=== PATIENT | female | born 1995 | race African-American/Black ===

== ENCOUNTER 2018-03-30 01:53 | Emergency (ER) | payer OTHER ==
[~2018-03-30] VITALS: Ht 165.1 cm; Wt 65.9 kg
[2018-03-30 02:08] VITALS: BP 136/78
[2018-03-30 03:31] LABS: BASOPHILS % (AUTO) 0.9 % (0.0-2.0); EOSINOPHILS % (AUTO) 0.1 % (1.0-6.0); HEMATOCRIT 35.7 % (36-46); HEMOGLOBIN 11.4 g/dL (12.0-16.0); LYMPHOCYTES # (AUTO) 1.1 K/uL (1.0-4.8); LYMPHOCYTES % (AUTO) 13.9 % (22.0-44.0); MEAN CORPUSCULAR HEMOGLOBIN 24.4 pg (26.0-34.0); MEAN CORPUSCULAR HGB CONC 31.8 G/dL (31.0-37.0); MEAN CORPUSCULAR VOLUME 77 fL (80-100); MONOCYTES # (AUTO) 0.7 K/uL (0.1-1.0); MONOCYTES % (AUTO) 8.7 % (2.0-9.0); NEUTROPHILS # (AUTO) 6.2 K/uL (1.8-7.7); NEUTROPHILS % (AUTO) 76.4 % (40.0-70.0); PLATELET COUNT (AUTO) 272 K/uL (150-450); RED BLOOD CELL COUNT(AUTO) 4.66 MIL/uL (4.00-5.20); RED CELL DISTRIBUTION WIDTH 15.8 % (11.5-14.5)
[2018-03-30 03:45] LABS: PLATELET MORPHOLOGY COMMENT LARGE PLTS PRESENT
[2018-03-30 03:46] LABS: ALANINE AMINOTRANSFERASE 70 U/L (12-78); ALKALINE PHOSPHATASE 55 U/L (46-116); ANION GAP 11 mmol/L (8-16); ASPARTATE AMINOTRANSFERASE 140 U/L (15-37); BILIRUBIN,TOTAL 0.4 mg/dL (0.1-1.0); CALCIUM, TOTAL 9.4 mg/dL (8.8-10.5); CARBON DIOXIDE 27 mmol/L (22-29); CHLORIDE 102 mmol/L (98-107); CREATININE 0.69 mg/dL (0.60-1.30); GLOMERULAR FILTR. RATE CALC > 60 mL/min (>60); GLUCOSE,RANDOM 100 mg/dL (70-110); SODIUM SERUM 140 mmol/L (136-145); TOTAL PROTEIN, SERUM 7.3 g/dL (6.4-8.2); UREA NITROGEN, BLOOD 10 mg/dL (7-18)
[2018-03-30 03:49] LABS: POTASSIUM 2.8 mmol/L (3.5-5.1)
[2018-03-30] MEDS ORDERED: POTASSIUM CHLORIDE 20 MEQ ER TABLET PO ONE (04:00)
[2018-03-30 04:46] LABS: HCG,QUANTITATIVE < 1 mIU/mL (0-6)
== END 2018-03-30 04:54 | disposition home or self-care (01) ==
LOC: EMS 01:54
DX: F41.9 Anxiety disorder, unspecified (principal); F22 Delusional disorders; E87.6 Hypokalemia; Z79.899 Other long term (current) drug therapy
CPT/HCPCS: 36415; 80053; 80307; 84702; 85025; 99284; G0480

== ENCOUNTER 2018-03-30 08:25 | Inpatient (IN) | payer MEDICAID, OTHER ==
[~2018-03-30] VITALS: Ht 165.1 cm; Wt 55.8 kg
[2018-03-30] MEDS ORDERED: HALOPERIDOL 5 MG TABLET PO PRN (11:15)
[2018-03-30] MEDS ORDERED: LORazepam 2 MG TABLET PO PRN (11:15)
[2018-03-30] MEDS ORDERED: ZOLPIDEM TARTRATE 10 MG TABLET PO PRN (11:15)
[2018-03-30 11:26] LABS: BASOPHILS % (AUTO) 0.5 % (0.0-2.0); EOSINOPHILS % (AUTO) 0.6 % (1.0-6.0); HEMATOCRIT 36.9 % (36-46); HEMOGLOBIN 11.7 g/dL (12.0-16.0); LYMPHOCYTES # (AUTO) 1.5 K/uL (1.0-4.8); LYMPHOCYTES % (AUTO) 16.1 % (22.0-44.0); MEAN CORPUSCULAR HEMOGLOBIN 24.4 pg (26.0-34.0); MEAN CORPUSCULAR HGB CONC 31.9 G/dL (31.0-37.0); MEAN CORPUSCULAR VOLUME 77 fL (80-100); MONOCYTES # (AUTO) 0.8 K/uL (0.1-1.0); MONOCYTES % (AUTO) 8.3 % (2.0-9.0); NEUTROPHILS # (AUTO) 6.8 K/uL (1.8-7.7); NEUTROPHILS % (AUTO) 74.5 % (40.0-70.0); PLATELET COUNT (AUTO) 257 K/uL (150-450); RED CELL DISTRIBUTION WIDTH 15.7 % (11.5-14.5)
[2018-03-30 11:41] LABS: ALANINE AMINOTRANSFERASE 70 U/L (12-78); ALBUMIN 3.8 g/dL (3.4-5.0); ALKALINE PHOSPHATASE 48 U/L (46-116); ANION GAP 5 mmol/L (8-16); ASPARTATE AMINOTRANSFERASE 147 U/L (15-37); BILIRUBIN,TOTAL 0.4 mg/dL (0.1-1.0); CALCIUM, TOTAL 8.7 mg/dL (8.8-10.5); CARBON DIOXIDE 33 mmol/L (22-29); CHLORIDE 102 mmol/L (98-107); CREATININE 0.55 mg/dL (0.60-1.30); GLOMERULAR FILTR. RATE CALC > 60 mL/min (>60); GLUCOSE,RANDOM 116 mg/dL (70-110); SODIUM SERUM 140 mmol/L (136-145); TOTAL PROTEIN, SERUM 7.3 g/dL (6.4-8.2); UREA NITROGEN, BLOOD 6 mg/dL (7-18)
[2018-03-30 11:48] LABS: POTASSIUM 2.6 mmol/L (3.5-5.1)
[2018-03-30] MEDS ORDERED: POTASSIUM CHLORIDE 20 MEQ ER TABLET PO ONE ×2 (12:00→16:15)
[2018-03-30 16:02] LABS: APPEARANCE,URINE CLEAR (CLEAR); BILIRUBIN,URINE NEGATIVE (NEGATIVE); GLUCOSE, URINE (UA) NEGATIVE (NEGATIVE); KETONES,URINE NEGATIVE (NEGATIVE); LEUKOCYTE ESTERASE ,URINE NEGATIVE (NEGATIVE); NITRATE,URINE NEGATIVE (NEGATIVE); OCCULT BLOOD,URINE MODERATE (NEGATIVE); PROTEIN,URINE TRACE (NEGATIVE); UROBILINOGEN,URINE 0.2 mg/dL (<=1.0)
[2018-03-30 16:03] LABS: AMPHET/METH SCREEN,URINE NEGATIVE (NEGATIVE); BARBITURATE SCREEN, URINE NEGATIVE (NEGATIVE); BENZODIAZEPINES SCREEN,URINE NEGATIVE (NEGATIVE); CANNABINOID SCREEN,URINE NEGATIVE (NEGATIVE); COCAINE SCREEN,URINE NEGATIVE (NEGATIVE); METHADONE SCREEN, URINE NEGATIVE (NEGATIVE); OPIATE SCREEN,URINE NEGATIVE (NEGATIVE)
[2018-03-30 16:13] LABS: PHENCYCLIDINE SCREEN,URINE NEGATIVE (NEGATIVE)
[2018-03-30 16:19] LABS: BACTERIA,URINE Few /HPF (None Seen); MUCUS,URINE Many LPF (None Seen); RBC,URINE 0-2 /HPF (0-2); SQUAMOUS EPITHELIAL CELL,UR Few /LPF (None Seen); WBC,URINE 0-2 /HPF (0-5)
[2018-03-30 18:20] VITALS: BP 131/92
[2018-03-30] MEDS ORDERED: MAGNESIUM HYDROXIDE SUSPENSION 30 ML UDCUP PO PRN (20:00)
[2018-03-30] MEDS ORDERED: GuaiFENesin/D-METHORPHAN [SUGAR-FREE] 200-20MG/10 ML SYRUP UDCUP PO PRN (20:00)
[2018-03-30] MEDS ORDERED: DOCUSATE SODIUM 100 MG CAPSULE PO PRN (20:00)
[2018-03-30] MEDS ORDERED: ACETAMINOPHEN 325 MG TABLET PO PRN (20:00)
[2018-03-30] MEDS ORDERED: IBUPROFEN 400 MG TABLET PO PRN (20:00)
[2018-03-30] MEDS ORDERED: MAG HYDROX/AL HYDROX/SIMETH ES 30 ML SUSPENSION UDCUP PO PRN (20:00)
[2018-03-30] MEDS ORDERED: ONDANSETRON HCL 4 MG TABLET PO PRN (20:00)
[2018-03-30] MEDS ORDERED: ALBUTEROL SULFATE HFA 90 MCG/PUFF 8 GM INHALER IH PRN (20:00)
[2018-03-30] MEDS ORDERED: NICOTINE 14 MG/24 HOUR PATCH TD PRN (20:00)
[2018-03-30] MEDS ORDERED: CloNIDine HCL 0.1 MG TABLET PO PRN (20:00)
[2018-03-30] MEDS ORDERED: LOPERAMIDE HCL 2 MG CAPSULE PO PRN (20:00)
[2018-03-30] MEDS ORDERED: PETROLATUM,WHITE 71 GM JELLY TP PRN (20:00)
[2018-03-31 01:26] VITALS: BP 133/86
[2018-03-31] MEDS ORDERED: FAMOTIDINE 20 MG TABLET PO ONE (08:45)
[2018-03-31] MEDS ORDERED: PredniSONE 20 MG TABLET PO ONE (08:45)
[2018-03-31] MEDS ORDERED: DiphenhydrAMINE HCL 25 MG CAPSULE PO ONE (08:45)
[2018-03-31 08:46] LABS: EOSINOPHILS % (AUTO) 3.8 % (1.0-6.0); HEMOGLOBIN 11.7 g/dL (12.0-16.0); LYMPHOCYTES # (AUTO) 2.1 K/uL (1.0-4.8); LYMPHOCYTES % (AUTO) 33.4 % (22.0-44.0); MEAN CORPUSCULAR HEMOGLOBIN 24.9 pg (26.0-34.0); MEAN CORPUSCULAR HGB CONC 32.6 G/dL (31.0-37.0); MEAN CORPUSCULAR VOLUME 76 fL (80-100); MONOCYTES # (AUTO) 0.5 K/uL (0.1-1.0); MONOCYTES % (AUTO) 8.4 % (2.0-9.0); NEUTROPHILS # (AUTO) 3.3 K/uL (1.8-7.7); NEUTROPHILS % (AUTO) 53.4 % (40.0-70.0); PLATELET COUNT (AUTO) 269 K/uL (150-450); RED BLOOD CELL COUNT(AUTO) 4.71 MIL/uL (4.00-5.20); RED CELL DISTRIBUTION WIDTH 15.8 % (11.5-14.5)
[2018-03-31 08:49] LABS: HEMOGLOBIN A1C 5.5 % (4.5-6.2)
[2018-03-31 09:04] LABS: ALANINE AMINOTRANSFERASE 59 U/L (12-78); ALBUMIN 3.3 g/dL (3.4-5.0); ALKALINE PHOSPHATASE 45 U/L (46-116); ANION GAP 6 mmol/L (8-16); ASPARTATE AMINOTRANSFERASE 84 U/L (15-37); BILIRUBIN,TOTAL 0.3 mg/dL (0.1-1.0); CALCIUM, TOTAL 8.9 mg/dL (8.8-10.5); CARBON DIOXIDE 31 mmol/L (22-29); CHLORIDE 104 mmol/L (98-107); CHOL/HDL RATIO 2.4 (3.9-5.7); CHOLESTEROL 114 mg/dL (131-200); CREATININE 0.57 mg/dL (0.60-1.30); FREE T4 (FREE THYROXINE) 0.91 ng/dL (0.76-1.46); GLOMERULAR FILTR. RATE CALC > 60 mL/min (>60); GLUCOSE,RANDOM 90 mg/dL (70-110); HCG,QUANTITATIVE < 1 mIU/mL (0-6); HDL CHOLESTEROL 47 mg/dL (40-60); LDL CHOL (CALC.) 58 mg/dL (0-130); POTASSIUM 3.7 mmol/L (3.5-5.1); SODIUM SERUM 141 mmol/L (136-145); THYROID STIMULATING HORMONE 2.11 uIU/mL (0.36-3.74); TOTAL PROTEIN, SERUM 6.5 g/dL (6.4-8.2); TRIGLYCERIDES 45 mg/dL (15-150); UREA NITROGEN, BLOOD 6 mg/dL (7-18)
[2018-03-31 09:13] VITALS: BP 112/65
[2018-03-31 16:08] VITALS: BP 114/76
[2018-03-31] MEDS: FERROUS SULFATE 325 MG EC TABLET PO SCH (16:41)
[2018-03-31] MEDS: QUEtiapine FUMARATE 25 MG TABLET PO SCH (20:43)
[2018-04-01 00:42] VITALS: BP 103/62
[2018-04-01] MEDS: FERROUS SULFATE 325 MG EC TABLET PO SCH ×2 (06:49→16:23)
[2018-04-01 08:25] VITALS: BP 139/82
[2018-04-01 16:22] VITALS: BP 131/81
[2018-04-01] MEDS: QUEtiapine FUMARATE 25 MG TABLET PO SCH (20:31)
[2018-04-02 06:14] VITALS: BP 135/76
[2018-04-02] MEDS: FERROUS SULFATE 325 MG EC TABLET PO SCH ×2 (07:03→16:49)
[2018-04-02 08:41] VITALS: BP 121/69
[2018-04-02] MEDS: QUEtiapine FUMARATE 25 MG TABLET PO SCH ×2 (09:01→20:28)
[2018-04-02 16:04] VITALS: BP 141/74
[2018-04-03 06:44] VITALS: BP 137/84
[2018-04-03] MEDS: FERROUS SULFATE 325 MG EC TABLET PO SCH ×2 (07:02→17:10)
[2018-04-03 08:28] VITALS: BP 123/82
[2018-04-03] MEDS: QUEtiapine FUMARATE 25 MG TABLET PO SCH ×2 (09:00→20:24)
[2018-04-03 19:20] VITALS: BP 134/82
[2018-04-04] MEDS: FERROUS SULFATE 325 MG EC TABLET PO SCH ×2 (06:58→16:04)
[2018-04-04 07:16] VITALS: BP 135/82
[2018-04-04 08:21] VITALS: BP 122/90
[2018-04-04] MEDS: QUEtiapine FUMARATE 25 MG TABLET PO SCH ×2 (08:51→20:40)
[2018-04-04 16:07] VITALS: BP 140/67
[2018-04-05 00:41] VITALS: BP 116/76
[2018-04-05] MEDS: FERROUS SULFATE 325 MG EC TABLET PO SCH ×2 (06:42→16:59)
[2018-04-05 08:32] VITALS: BP 131/72
[2018-04-05] MEDS: QUEtiapine FUMARATE 25 MG TABLET PO SCH ×3 (08:49→20:25)
[2018-04-05 16:29] VITALS: BP 139/82
[2018-04-06 00:01] VITALS: BP 136/98
[2018-04-06] MEDS: FERROUS SULFATE 325 MG EC TABLET PO SCH ×2 (07:02→17:12)
[2018-04-06] MEDS: QUEtiapine FUMARATE 25 MG TABLET PO SCH ×2 (08:14→20:40)
[2018-04-06 08:39] VITALS: BP 125/73
[2018-04-06 20:24] VITALS: BP 128/82
[2018-04-07 00:44] VITALS: BP 133/80
[2018-04-07] MEDS: FERROUS SULFATE 325 MG EC TABLET PO SCH ×2 (07:01→16:17)
[2018-04-07 08:26] VITALS: BP 112/83
[2018-04-07] MEDS: QUEtiapine FUMARATE 25 MG TABLET PO SCH ×2 (09:00→21:00)
[2018-04-07 16:05] VITALS: BP 119/78
[2018-04-08 04:21] VITALS: BP 120/72
[2018-04-08] MEDS: FERROUS SULFATE 325 MG EC TABLET PO SCH (07:02)
[2018-04-08 08:13] VITALS: BP 119/69
[2018-04-08] MEDS: QUEtiapine FUMARATE 25 MG TABLET PO SCH (09:00)
[2018-04-08] MEDS ORDERED: FERR-89 PO (10:15)
[2018-04-08] MEDS ORDERED: QUET25TA PO (10:15)
== END 2018-04-08 11:35 | disposition home or self-care (01) | DRG 750 ==
LOC: EMS 08:26 → B2S 16:27
DX: F20.0 Paranoid schizophrenia (principal); R45.851 Suicidal ideations; K90.41 Non-celiac gluten sensitivity; F20.9 Schizophrenia, unspecified; F19.10 Other psychoactive substance abuse, uncomplicated; R74.0 Nonspecific elevation of levels of transaminase and lactic acid dehydrogenase [LDH]; F41.9 Anxiety disorder, unspecified; E87.6 Hypokalemia; Z88.8 Allergy status to other drugs, medicaments and biological substances; Z71.51 Drug abuse counseling and surveillance of drug abuser; Z81.8 Family history of other mental and behavioral disorders
CPT/HCPCS: 80074; 83036; 84132; 84439; 84443; G0480

== ENCOUNTER 2018-04-12 21:23 | Inpatient (IN) | payer MEDICAID, OTHER ==
[~2018-04-12] VITALS: Ht 165.1 cm; Wt 56.9 kg
[~2018-04-12 21:23] MED LIST: FERR-89 PO; QUET25TA PO
[2018-04-12 21:59] LABS: GLUCOSE,POINT OF CARE 89 MG/DL (70-110)
[2018-04-12] MEDS ORDERED: HALOPERIDOL LACTATE 5 MG/ML VIAL IM ONE (22:30)
[2018-04-12] MEDS ORDERED: LORazepam 2 MG/ML VIAL IM ONE (22:30)
[2018-04-12] MEDS ORDERED: DiphenhydrAMINE HCL 50 MG/ML VIAL IM ONE (22:30)
[2018-04-12 22:37] LABS: EOSINOPHILS % (AUTO) 0.4 % (1.0-6.0); HEMATOCRIT 36.6 % (36-46); HEMOGLOBIN 11.5 g/dL (12.0-16.0); LYMPHOCYTES # (AUTO) 2.3 K/uL (1.0-4.8); LYMPHOCYTES % (AUTO) 30.9 % (22.0-44.0); MEAN CORPUSCULAR HEMOGLOBIN 23.9 pg (26.0-34.0); MEAN CORPUSCULAR HGB CONC 31.3 G/dL (31.0-37.0); MEAN CORPUSCULAR VOLUME 76 fL (80-100); MONOCYTES # (AUTO) 0.6 K/uL (0.1-1.0); MONOCYTES % (AUTO) 7.8 % (2.0-9.0); NEUTROPHILS # (AUTO) 4.5 K/uL (1.8-7.7); NEUTROPHILS % (AUTO) 59.9 % (40.0-70.0); PLATELET COUNT (AUTO) 321 K/uL (150-450); RED BLOOD CELL COUNT(AUTO) 4.79 MIL/uL (4.00-5.20); RED CELL DISTRIBUTION WIDTH 17.2 % (11.5-14.5)
[2018-04-12 22:47] LABS: ANION GAP 5 mmol/L (8-16); CALCIUM, TOTAL 8.9 mg/dL (8.8-10.5); CARBON DIOXIDE 28 mmol/L (22-29); CHLORIDE 107 mmol/L (98-107); CREATININE 0.65 mg/dL (0.60-1.30); GLOMERULAR FILTR. RATE CALC > 60 mL/min (>60); GLUCOSE,RANDOM 98 mg/dL (70-110); POTASSIUM 3.8 mmol/L (3.5-5.1); SODIUM SERUM 140 mmol/L (136-145); UREA NITROGEN, BLOOD 13 mg/dL (7-18)
[2018-04-12 22:57] LABS: ALANINE AMINOTRANSFERASE 22 U/L (12-78); ALBUMIN 3.7 g/dL (3.4-5.0); ALKALINE PHOSPHATASE 45 U/L (46-116); ASPARTATE AMINOTRANSFERASE 22 U/L (15-37); BILIRUBIN,TOTAL 0.3 mg/dL (0.1-1.0); HCG,QUANTITATIVE < 1 mIU/mL (0-6); TOTAL PROTEIN, SERUM 6.8 g/dL (6.4-8.2)
[2018-04-12] MEDS ORDERED: LORazepam 2 MG TABLET PO PRN (23:00)
[2018-04-12] MEDS ORDERED: ZOLPIDEM TARTRATE 10 MG TABLET PO PRN (23:00)
[2018-04-12] MEDS ORDERED: HALOPERIDOL 5 MG TABLET PO PRN (23:00)
[2018-04-13 04:43] VITALS: BP 131/79
[2018-04-13] MEDS: QUEtiapine FUMARATE 25 MG TABLET PO SCH ×2 (09:39→20:15)
[2018-04-14] MEDS: QUEtiapine FUMARATE 25 MG TABLET PO SCH (09:03)
[2018-04-14 10:20] VITALS: BP 130/90
[2018-04-14] MEDS: ARIPiprazole 10 MG TABLET PO SCH (11:52)
[2018-04-14 16:30] VITALS: BP 134/84
[2018-04-15 01:51] VITALS: BP_SYST 0
[2018-04-15] MEDS: ARIPiprazole 10 MG TABLET PO SCH (09:23)
[2018-04-15] MEDS ORDERED: CloNIDine HCL 0.1 MG TABLET PO PRN (14:30)
[2018-04-15] MEDS ORDERED: PETROLATUM,WHITE 71 GM JELLY TP PRN (14:30)
[2018-04-15] MEDS ORDERED: MAG HYDROX/AL HYDROX/SIMETH ES 30 ML SUSPENSION UDCUP PO PRN (14:30)
[2018-04-15] MEDS ORDERED: ACETAMINOPHEN 325 MG TABLET PO PRN (14:30)
[2018-04-15] MEDS ORDERED: IBUPROFEN 400 MG TABLET PO PRN (14:30)
[2018-04-15] MEDS ORDERED: DOCUSATE SODIUM 100 MG CAPSULE PO PRN (14:30)
[2018-04-15] MEDS ORDERED: ONDANSETRON HCL 4 MG TABLET PO PRN (14:30)
[2018-04-15] MEDS ORDERED: LOPERAMIDE HCL 2 MG CAPSULE PO PRN (14:30)
[2018-04-15] MEDS ORDERED: GuaiFENesin/D-METHORPHAN [SUGAR-FREE] 200-20MG/10 ML SYRUP UDCUP PO PRN (14:30)
[2018-04-15] MEDS ORDERED: ALBUTEROL SULFATE HFA 90 MCG/PUFF 8 GM INHALER IH PRN (14:30)
[2018-04-15] MEDS ORDERED: NICOTINE 14 MG/24 HOUR PATCH TD PRN (14:30)
[2018-04-15] MEDS ORDERED: MAGNESIUM HYDROXIDE SUSPENSION 30 ML UDCUP PO PRN (14:30)
[2018-04-16 02:13] VITALS: BP 134/95
[2018-04-16 10:40] VITALS: BP 115/78
[2018-04-16] MEDS: ARIPiprazole 10 MG TABLET PO SCH (12:01)
[2018-04-17 08:30] VITALS: BP 120/68
[2018-04-17 17:26] VITALS: BP 124/77
[2018-04-18 08:30] VITALS: BP 132/79
[2018-04-18] MEDS ORDERED: ARIPiprazole 15 MG TABLET PO SCH (09:00)
[2018-04-18] MEDS ORDERED: PALIPERIDONE 3 MG ER TABLET PO ONE (21:00)
[2018-04-19] MEDS: RisperiDONE 2 MG TABLET PO SCH ×2 (11:30→21:00)
[2018-04-19 19:25] VITALS: BP 119/78
[2018-04-19] MEDS ORDERED: PALIPERIDONE 3 MG ER TABLET PO SCH (21:00)
[2018-04-20 08:05] VITALS: BP 121/67
[2018-04-20] MEDS ORDERED: PALIPERIDONE PALMITATE 234 MG/1.5 ML SYRINGE IM ONE (09:00)
[2018-04-20] MEDS: RisperiDONE 2 MG TABLET PO SCH ×2 (09:00→21:00)
[2018-04-21] MEDS: RisperiDONE 2 MG TABLET PO SCH ×2 (09:00→20:55)
[2018-04-21] MEDS ORDERED: HALOPERIDOL LACTATE 5 MG/ML VIAL IM PRN (17:00)
[2018-04-22] MEDS: RisperiDONE 2 MG TABLET PO SCH ×2 (08:59→20:13)
[2018-04-23 08:30] VITALS: BP 124/78
[2018-04-23] MEDS: RisperiDONE 2 MG TABLET PO SCH ×2 (11:26→20:50)
[2018-04-24 08:00] VITALS: BP 103/69
[2018-04-24] MEDS: RisperiDONE 2 MG TABLET PO SCH ×2 (09:17→21:44)
[2018-04-24 17:36] VITALS: BP 140/95
[2018-04-25 08:22] VITALS: BP 126/90
[2018-04-25] MEDS: RisperiDONE 2 MG TABLET PO SCH ×2 (10:04→21:21)
[2018-04-26 08:59] VITALS: BP 143/99
[2018-04-26] MEDS: RisperiDONE 2 MG TABLET PO SCH (09:24)
[2018-04-26] MEDS: RisperiDONE 3 MG TABLET PO SCH (21:17)
[2018-04-27 08:05] VITALS: BP 112/61
[2018-04-27] MEDS: RisperiDONE 3 MG TABLET PO SCH ×2 (10:00→21:12)
[2018-04-28] MEDS: RisperiDONE 3 MG TABLET PO SCH (08:39)
[2018-04-28] MEDS: RisperiDONE CONC 3 MG/3 ML SOLUTION ORAL.SYG PO SCH (21:18)
[2018-04-29] MEDS: RisperiDONE CONC 3 MG/3 ML SOLUTION ORAL.SYG PO SCH ×2 (10:51→21:23)
[2018-04-29 16:54] VITALS: BP 113/65
[2018-04-30 08:32] VITALS: BP 129/80
[2018-04-30] MEDS: RisperiDONE CONC 3 MG/3 ML SOLUTION ORAL.SYG PO SCH ×2 (08:42→20:57)
[2018-04-30] MEDS ORDERED: PALIPERIDONE PALMITATE 234 MG/1.5 ML SYRINGE IM ONE (12:00)
[2018-04-30 17:16] VITALS: BP 119/71
[2018-05-01] MEDS: RisperiDONE CONC 3 MG/3 ML SOLUTION ORAL.SYG PO SCH ×2 (09:00→20:22)
[2018-05-02] MEDS: RisperiDONE CONC 3 MG/3 ML SOLUTION ORAL.SYG PO SCH ×2 (09:00→21:32)
[2018-05-03] MEDS: RisperiDONE CONC 3 MG/3 ML SOLUTION ORAL.SYG PO SCH ×2 (08:47→21:16)
[2018-05-04 08:00] VITALS: BP 133/93
[2018-05-04] MEDS ORDERED: PALIPERIDONE PALMITATE 156 MG/ML SYRINGE IM ONE (09:00)
[2018-05-04] MEDS: RisperiDONE CONC 3 MG/3 ML SOLUTION ORAL.SYG PO SCH ×2 (10:15→20:40)
[2018-05-05] MEDS: RisperiDONE CONC 3 MG/3 ML SOLUTION ORAL.SYG PO SCH (08:57)
== END 2018-05-05 15:00 | disposition home or self-care (01) | DRG 750 ==
LOC: EMS 21:24 → 3EI 23:09
DX: F20.0 Paranoid schizophrenia (principal); Z91.14 Patient's other noncompliance with medication regimen; D64.9 Anemia, unspecified; F94.0 Selective mutism; F41.9 Anxiety disorder, unspecified; Z79.899 Other long term (current) drug therapy; Z88.8 Allergy status to other drugs, medicaments and biological substances
CPT/HCPCS: 87081; 96372; G0480; J1200; J1630; J2060

== ENCOUNTER 2019-04-09 16:56 | Emergency (ER) | payer MEDICAID, OTHER ==
[~2019-04-09] VITALS: Ht 165.1 cm; Wt 75.0 kg
[2019-04-09 18:49] LABS: BASOPHILS % (AUTO) 1.1 % (0.0-2.0); EOSINOPHILS % (AUTO) 4.2 % (1.0-6.0); HEMATOCRIT 39.9 % (36-46); HEMOGLOBIN 12.6 g/dL (12.0-16.0); LYMPHOCYTES # (AUTO) 1.9 K/uL (1.0-4.8); LYMPHOCYTES % (AUTO) 26.7 % (22.0-44.0); MEAN CORPUSCULAR HEMOGLOBIN 23.7 pg (26.0-34.0); MEAN CORPUSCULAR HGB CONC 31.5 G/dL (31.0-37.0); MEAN CORPUSCULAR VOLUME 75 fL (80-100); MONOCYTES # (AUTO) 0.6 K/uL (0.1-1.0); MONOCYTES % (AUTO) 8.4 % (2.0-9.0); NEUTROPHILS # (AUTO) 4.2 K/uL (1.8-7.7); NEUTROPHILS % (AUTO) 59.6 % (40.0-70.0); PLATELET COUNT (AUTO) 355 K/uL (150-450); RED BLOOD CELL COUNT(AUTO) 5.32 MIL/uL (4.00-5.20); RED CELL DISTRIBUTION WIDTH 18.1 % (11.5-14.5)
[2019-04-09 18:58] LABS: ANION GAP 8 mmol/L (8-16); CALCIUM, TOTAL 9.1 mg/dL (8.8-10.5); CARBON DIOXIDE 27 mmol/L (22-29); CHLORIDE 104 mmol/L (98-107); CREATININE 0.73 mg/dL (0.60-1.30); GLOMERULAR FILTR. RATE CALC > 60 mL/min (>60); GLUCOSE,RANDOM 97 mg/dL (70-110); POTASSIUM 3.8 mmol/L (3.5-5.1); SODIUM SERUM 139 mmol/L (136-145); UREA NITROGEN, BLOOD 5 mg/dL (7-18)
[2019-04-09 19:05] LABS: PLATELET MORPHOLOGY COMMENT GIANT PLTS PRESENT
[2019-04-09 19:30] LABS: BILIRUBIN,TOTAL 0.5 mg/dL (0.1-1.0)
[2019-04-09 19:31] LABS: ALANINE AMINOTRANSFERASE 26 U/L (12-78); ASPARTATE AMINOTRANSFERASE 14 U/L (15-37)
[2019-04-09 19:50] LABS: ALKALINE PHOSPHATASE 87 U/L (46-116); TOTAL PROTEIN, SERUM 7.9 g/dL (6.4-8.2)
[2019-04-09 19:55] LABS: APPEARANCE,URINE CLOUDY (CLEAR); BILIRUBIN,URINE NEGATIVE (NEGATIVE); GLUCOSE, URINE (UA) NEGATIVE (NEGATIVE); KETONES,URINE NEGATIVE (NEGATIVE); LEUKOCYTE ESTERASE ,URINE NEGATIVE (NEGATIVE); NITRATE,URINE NEGATIVE (NEGATIVE); OCCULT BLOOD,URINE NEGATIVE (NEGATIVE); PROTEIN,URINE NEGATIVE (NEGATIVE); UROBILINOGEN,URINE 0.2 mg/dL (<=1.0)
[2019-04-09 20:30] VITALS: BP 136/78
[2019-04-09] MEDS ORDERED: ACETAMINOPHEN 325 MG TABLET PO ONE (20:45)
== END 2019-04-09 20:53 | disposition home or self-care (01) ==
LOC: EMS 16:57
DX: R10.30 Lower abdominal pain, unspecified (principal); F41.9 Anxiety disorder, unspecified; Z88.8 Allergy status to other drugs, medicaments and biological substances

== ENCOUNTER 2020-06-05 19:48 | Emergency (ER) | payer OTHER ==
[~2020-06-05] VITALS: Ht 165.1 cm; Wt 70.5 kg
[~2020-06-05 19:48] MED LIST changes: +ALBU8HFA IH; +ONDA-104 PO
[2020-06-05 19:59] VITALS: BP 154/97
[2020-06-05 20:32] LABS: BASOPHILS % (AUTO) 0.8 % (0.0-2.0); EOSINOPHILS % (AUTO) 1.9 % (1.0-6.0); HEMATOCRIT 39.7 % (36-46); HEMOGLOBIN 12.8 g/dL (12.0-16.0); LYMPHOCYTES # (AUTO) 2.1 K/uL (1.0-4.8); LYMPHOCYTES % (AUTO) 24.6 % (22.0-44.0); MEAN CORPUSCULAR HEMOGLOBIN 25.6 pg (26.0-34.0); MEAN CORPUSCULAR HGB CONC 32.4 G/dL (31.0-37.0); MEAN CORPUSCULAR VOLUME 79 fL (80-100); MONOCYTES # (AUTO) 0.6 K/uL (0.1-1.0); MONOCYTES % (AUTO) 6.9 % (2.0-9.0); NEUTROPHILS # (AUTO) 5.7 K/uL (1.8-7.7); NEUTROPHILS % (AUTO) 65.8 % (40.0-70.0); PLATELET COUNT (AUTO) 271 K/uL (150-450); RED BLOOD CELL COUNT(AUTO) 5.02 MIL/uL (4.00-5.20); RED CELL DISTRIBUTION WIDTH 15.8 % (11.5-14.5)
[2020-06-05 20:48] LABS: ANION GAP 16 mmol/L (8-16); CALCIUM, TOTAL 8.9 mg/dL (8.8-10.5); CARBON DIOXIDE 21 mmol/L (22-29); CHLORIDE 103 mmol/L (98-107); CREATININE 0.71 mg/dL (0.60-1.30); GLOMERULAR FILTR. RATE CALC > 60 mL/min (>60); GLUCOSE,RANDOM 102 mg/dL (70-110); POTASSIUM 3.3 mmol/L (3.5-5.1); SODIUM SERUM 140 mmol/L (136-145); UREA NITROGEN, BLOOD 8 mg/dL (7-18)
[2020-06-05 20:55] LABS: ALANINE AMINOTRANSFERASE 19 U/L (12-78); ALBUMIN 4.2 g/dL (3.4-5.0); ALKALINE PHOSPHATASE 70 U/L (46-116); ASPARTATE AMINOTRANSFERASE 21 U/L (15-37); BILIRUBIN,TOTAL 2.3 mg/dL (0.1-1.0); TOTAL PROTEIN, SERUM 8.4 g/dL (6.4-8.2)
[2020-06-05] MEDS ORDERED: POTASSIUM CHLORIDE 20 MEQ ER TABLET PO ONE (23:00)
[2020-06-05 23:16] LABS: AMPHET/METH SCREEN,URINE NEGATIVE (NEGATIVE); BARBITURATE SCREEN, URINE NEGATIVE (NEGATIVE); BENZODIAZEPINES SCREEN,URINE NEGATIVE (NEGATIVE); CANNABINOID SCREEN,URINE NEGATIVE (NEGATIVE); COCAINE SCREEN,URINE NEGATIVE (NEGATIVE); METHADONE SCREEN, URINE NEGATIVE (NEGATIVE); OPIATE SCREEN,URINE NEGATIVE (NEGATIVE)
[2020-06-05 23:17] LABS: PHENCYCLIDINE SCREEN,URINE NEGATIVE (NEGATIVE)
[2020-06-05 23:47] LABS: COVID AG,FIA SOURCE NASOPHARYNGEAL
== END 2020-06-06 01:00 | disposition home or self-care (01) ==
LOC: EMS 19:51
DX: F20.0 Paranoid schizophrenia (principal); F10.129 Alcohol abuse with intoxication, unspecified; F41.9 Anxiety disorder, unspecified; Z20.822 Contact with and (suspected) exposure to COVID-19; Z88.8 Allergy status to other drugs, medicaments and biological substances; Y90.8 Blood alcohol level of 240 mg/100 ml or more
CPT/HCPCS: 36415; 80053; 80307; 82962; 85025; 87426; 99283; G0480